=== PATIENT | male | born 1975 | race Caucasian/White ===

== ENCOUNTER 2020-12-24 08:23 | Inpatient (IN) | payer BC ==
[2020-12-24] MEDS ORDERED: SODIUM CHLORIDE 0.9% 500 ML 500 ML IV STA (08:52)
[2020-12-24] MEDS ORDERED: LORazepam 2 MG/ML INJ IV STA (08:52)
[2020-12-24 08:53] LABS: Glucose,Whole Blood 92 mg/dL (75-99)
--- NOTE | 2020-12-24 08:59 | ED ---
General Adult HPI - General Chief complaint: Shortness of Breath Stated complaint: SOB & chest pressure Time Seen by Provider: 12/24/20 08:30 Source: patient, family, RN notes reviewed, old records reviewed Mode of arrival: wheelchair Limitations: no limitations - History of Present Illness Initial comments: This is a 45-year-old male presents to the emergency department with a past medical history significant for high blood pressure. Patient comes in today stating with 3-4 days ago he developed a cough and some shortness of breath per patient states since then he's had multiple panic attacks anytime he lays flat he feels as though shortness of breath is worse. Patient states he has had some chest pressure throughout that time as well. Patient denies any fever or chills. Patient states he is having some episodes of sweating however. 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 Patient states that's unchanged. Patient states he has no lightheadedness or dizziness. Patient states it is much more difficult to breathing normal. - Related Data Home Medications Medication Instructions Recorded Confirmed Dm/Acetaminophen/Doxylamine [Vicks 30 ml PO Q6H PRN 12/24/20 12/24/20 Nyquil Cold-Flu Liquid] Allergies Allergy/AdvReac Type Severity Reaction Status Date / Time No Known Allergies Allergy Verified 12/24/20 11:02 Review of Systems ROS Statement: Those systems with pertinent positive or pertinent negative responses have been documented in the HPI. ROS Other: All systems not noted in ROS Statement are negative. Past Medical History Past Medical History: Hypertension History of Any Multi-Drug Resistant Organisms: None Reported Past Surgical History: No Surgical Hx Reported Past Psychological History: No Psychological Hx Reported Smoking Status: Never smoker Past Alcohol Use History: None Reported Past Drug Use History: None Reported General Exam - General Exam Comments Initial Comments: GENERAL: Patient is well-developed and well-nourished. Patient is nontoxic and well- hydrated and is in mild distress. ENT: Neck is soft and supple. No significant lymphadenopathy is noted. Oropharynx is clear. Moist mucous membranes. Neck has full range of motion without eliciting any pain. EYES: The sclera were anicteric and conjunctiva were pink and moist. Extraocular movements were intact and pupils were equal round and reactive to light. Eyelids were unremarkable. PULMONARY: Unlabored respirations. Good breath sounds bilaterally. No audible rales rhonchi or wheezing was noted. CARDIOVASCULAR: There is a regular rate and rhythm without any murmurs gallops or rubs. ABDOMEN: Soft and nontender with normal bowel sounds. SKIN: Skin is clear with no lesions or rashes and otherwise unremarkable. NEUROLOGIC: Patient is alert and oriented x3. Cranial nerves II through XII are grossly intact. Motor and sensory are also intact. Normal speech, volume and content. Symmetrical smile. MUSCULOSKELETAL: Normal extremities with adequate strength and full range of motion. No lower extremity swelling or edema. Patient has Pain on the right however is chronic and unchanged. No calf pain on the left LYMPHATICS: No significant lymphadenopathy is noted PSYCHIATRIC: Normal psychiatric evaluation. Limitations: no limitations Course Vital Signs 12/24/20 12/24/20 12/24/20 08:28 09:50 10:51 Temperature 97.7 F Pulse Rate 108 H 105 H 109 H Respiratory 18 24 24 Rate Blood Pressure 194/146 148/112 165/129 O2 Sat by Pulse 98 97 99 Oximetry 12/24/20 12/24/20 11:14 11:49 Temperature 98.4 F Pulse Rate 114 H 111 H Respiratory 18 Rate Blood Pressure 173/112 141/112 O2 Sat by Pulse 99 Oximetry Medical Decision Making - Medical Decision Making EKG shows sinus tachycardia #5 bpm MT interval 246 dresses 90 QT interval 356 QTC is 470. Patient's EKG shows T-wave inversions in leads 1-3 and aVF as well as leads V3 V4 V5 and V6. Patient has no old EKG to compare to - Lab Data Result diagrams: 12/24/20 08:54 12/24/20 08:54 Lab Results 12/24/20 12/24/20 12/24/20 Range/Units 08:51 08:52 08:54 WBC 10.1 (3.8-10.6) k/uL RBC 5.00 (4.30-5.90) m/uL Hgb 14.9 (13.0-17.5) gm/dL Hct 44.7 (39.0-53.0) % MCV 89.4 (80.0-100.0) fL MCH 29.8 (25.0-35.0) pg MCHC 33.3 (31.0-37.0) g/dL RDW 14.2 (11.5-15.5) % Plt Count 358 (150-450) k/uL MPV 8.3 Neutrophils % 62 % Lymphocytes % 25 % Monocytes % 5 % Eosinophils % 6 % Basophils % 1 % Neutrophils # 6.2 (1.3-7.7) k/uL Lymphocytes # 2.5 (1.0-4.8) k/uL Monocytes # 0.5 (0-1.0) k/uL Eosinophils # 0.6 (0-0.7) k/uL Basophils # 0.1 (0-0.2) k/uL PT (9.0-12.0) sec INR (<1.2) APTT (22.0-30.0) sec D-Dimer (<0.60) mg/L FEU Sodium (137-145) mmol/L Potassium (3.5-5.1) mmol/L Chloride (98-107) mmol/L Carbon Dioxide (22-30) mmol/L Anion Gap mmol/L BUN (9-20) mg/dL Creatinine (0.66-1.25) mg/dL Est GFR (CKD-EPI)AfAm (>60 ml/min/1.73 sqM) Est GFR (CKD-EPI)NonAf (>60 ml/min/1.73 sqM) Glucose (74-99) mg/dL POC Glucose (mg/dL) 92 (75-99) mg/dL POC Glu Screen Printing Loader Unloader ID [facility] Plasma Lactic Acid Rafael (0.7-2.0) mmol/L Calcium (8.4-10.2) mg/dL Magnesium (1.6-2.3) mg/dL Total Bilirubin (0.2-1.3) mg/dL AST (17-59) U/L ALT (4-49) U/L Alkaline Phosphatase (38-126) U/L Troponin I (0.000-0.034) ng/mL NT-Pro-B Natriuret Pep 2330 pg/mL Total Protein (6.3-8.2) g/dL Albumin (3.5-5.0) g/dL Coronavirus (PCR) (Not Detectd) 12/24/20 12/24/20 12/24/20 Range/Units 08:54 08:54 08:54 WBC (3.8-10.6) k/uL RBC (4.30-5.90) m/uL Hgb (13.0-17.5) gm/dL Hct (39.0-53.0) % MCV (80.0-100.0) fL MCH (25.0-35.0) pg MCHC (31.0-37.0) g/dL RDW (11.5-15.5) % Plt Count (150-450) k/uL MPV Neutrophils % % Lymphocytes % % Monocytes % % Eosinophils % % Basophils % % Neutrophils # (1.3-7.7) k/uL Lymphocytes # (1.0-4.8) k/uL Monocytes # (0-1.0) k/uL Eosinophils # (0-0.7) k/uL Basophils # (0-0.2) k/uL PT 11.1 (9.0-12.0) sec INR 1.0 (<1.2) APTT 23.6 (22.0-30.0) sec D-Dimer 0.72 H (<0.60) mg/L FEU Sodium 139 (137-145) mmol/L Potassium 4.0 (3.5-5.1) mmol/L Chloride 105 (98-107) mmol/L Carbon Dioxide 24 (22-30) mmol/L Anion Gap 10 mmol/L BUN 24 H (9-20) mg/dL Creatinine 1.15 (0.66-1.25) mg/dL Est GFR (CKD-EPI)AfAm 90 (>60 ml/min/1.73 sqM) Est GFR (CKD-EPI)NonAf 78 (>60 ml/min/1.73 sqM) Glucose 100 H (74-99) mg/dL POC Glucose (mg/dL) (75-99) mg/dL POC Glu Screen Printing Loader Unloader ID Plasma Lactic Acid Rafael 1.7 (0.7-2.0) mmol/L Calcium 9.3 (8.4-10.2) mg/dL Magnesium 1.9 (1.6-2.3) mg/dL Total Bilirubin 0.6 (0.2-1.3) mg/dL AST 44 (17-59) U/L ALT 22 (4-49) U/L Alkaline Phosphatase 63 (38-126) U/L Troponin I (0.000-0.034) ng/mL NT-Pro-B Natriuret Pep pg/mL Total Protein 6.7 (6.3-8.2) g/dL Albumin 4.0 (3.5-5.0) g/dL Coronavirus (PCR) (Not Detectd) 12/24/20 12/24/20 Range/Units 08:54 08:54 WBC (3.8-10.6) k/uL RBC (4.30-5.90) m/uL Hgb (13.0-17.5) gm/dL Hct (39.0-53.0) % MCV (80.0-100.0) fL MCH (25.0-35.0) pg MCHC (31.0-37.0) g/dL RDW (11.5-15.5) % Plt Count (150-450) k/uL MPV Neutrophils % % Lymphocytes % % Monocytes % % Eosinophils % % Basophils % % Neutrophils # (1.3-7.7) k/uL Lymphocytes # (1.0-4.8) k/uL Monocytes # (0-1.0) k/uL Eosinophils # (0-0.7) k/uL Basophils # (0-0.2) k/uL PT (9.0-12.0) sec INR (<1.2) APTT (22.0-30.0) sec D-Dimer (<0.60) mg/L FEU Sodium (137-145) mmol/L Potassium (3.5-5.1) mmol/L Chloride (98-107) mmol/L Carbon Dioxide (22-30) mmol/L Anion Gap mmol/L BUN (9-20) mg/dL Creatinine (0.66-1.25) mg/dL Est GFR (CKD-EPI)AfAm (>60 ml/min/1.73 sqM) Est GFR (CKD-EPI)NonAf (>60 ml/min/1.73 sqM) Glucose (74-99) mg/dL POC Glucose (mg/dL) (75-99) mg/dL POC Glu Screen Printing Loader Unloader ID Plasma Lactic Acid Rafael (0.7-2.0) mmol/L Calcium (8.4-10.2) mg/dL Magnesium (1.6-2.3) mg/dL Total Bilirubin (0.2-1.3) mg/dL AST (17-59) U/L ALT (4-49) U/L Alkaline Phosphatase (38-126) U/L Troponin I 0.062 H* (0.000-0.034) ng/mL NT-Pro-B Natriuret Pep pg/mL Total Protein (6.3-8.2) g/dL Albumin (3.5-5.0) g/dL Coronavirus (PCR) Not Detected (Not Detectd) Critical Care Time Critical Care Time: Yes Total Critical Care Time: 35 Disposition Clinical Impression: Hypertensive urgency, Acute pulmonary edema, Elevated troponin Disposition: ADMITTED IP TO THIS HOSP Referrals: None,Stated [Primary Care Provider] - 1-2 days Time of Disposition: 12:09
[2020-12-24 09:07] LABS: Basophils # (A) 0.1 k/uL (0-0.2); Basophils % (A) 1 %; Eosinophils # (A) 0.6 k/uL (0-0.7); Eosinophils % (A) 6 %; HCT 44.7 % (39.0-53.0); HGB 14.9 gm/dL (13.0-17.5); Lymphocytes # (A) 2.5 k/uL (1.0-4.8); Lymphocytes % (A) 25 %; MCH 29.8 pg (25.0-35.0); MCHC 33.3 g/dL (31.0-37.0); MCV 89.4 fL (80.0-100.0); Mean Platelet Volume 8.3; Monocytes # (A) 0.5 k/uL (0-1.0); Monocytes % (A) 5 %; Neutrophils # (A) 6.2 k/uL (1.3-7.7); Neutrophils % (A) 62 %; Platelet Count 358 k/uL (150-450); RDW 14.2 % (11.5-15.5); WBC 10.1 k/uL (3.8-10.6)
[2020-12-24 09:16] LABS: Calcium 9.3 mg/dL (8.4-10.2); Magnesium 1.9 mg/dL (1.6-2.3); Total Bilirubin 0.6 mg/dL (0.2-1.3); Total Protein 6.7 g/dL (6.3-8.2)
[2020-12-24 09:21] LABS: Partial Thromboplastin Time 23.6 sec (22.0-30.0); Prothrombin Time 11.1 sec (9.0-12.0)
--- NOTE | 2020-12-24 09:32 | XR ---
EXAMINATION TYPE: XR chest 2V DATE OF EXAM: 12/24/2020 COMPARISON: NONE HISTORY: difficulty breathing TECHNIQUE: Frontal and lateral views of the chest are obtained. FINDINGS: Perihilar and basilar infiltrates suspicious for underlying pneumonia. Correlate clinically. No evidence for pneumothorax. No pleural effusion. The cardiac silhouette size is within normal limits. The osseous structures are grossly intact. IMPRESSION: 1. Perihilar and basilar infiltrates suspicious for underlying pneumonia. Correlate clinically. Jason elate for Covid 19 pneumonia.
[2020-12-24] MEDS ORDERED: KETOROLAC 15 MG/ML 1 ML VIAL IVP STA (10:03)
[2020-12-24] MEDS ORDERED: cefTRIAXone IN SWFI 1,000 MG/10 ML SYRINGE IVP STA (10:18)
[2020-12-24] MEDS ORDERED: DEXAMETHASONE SOD PHOSPHATE 10 MG/ML 1 ML VIAL IV STA (10:27)
[2020-12-24] MEDS ORDERED: hydrALAZINE HCL 20 MG/ML 1 ML VIAL IVP STA (10:54)
[2020-12-24] MEDS ORDERED: FUROSEMIDE 10 MG/ML 10 ML VIAL IV STA (10:55)
--- NOTE | 2020-12-24 10:55 | CT ---
EXAMINATION TYPE: CT chest angio for PE DATE OF EXAM: 12/24/2020 COMPARISON: Radiograph same day HISTORY: 45-year-old male elevated d-dimer, Shortness of breath, chest pressure TECHNIQUE: Contiguous axial scanning of the chest performed with IV Contrast, patient injected with 1 00 mL of Isovue 370. Coronal and sagittal MIP reconstructions performed. CT DLP: 529.8 mGycm Automated exposure control for dose reduction was used. FINDINGS: Heart is enlarged without pericardial effusion. No flattening of the interventricular septum though t here is reflux of contrast into the hepatic veins. Aortic root mildly aneurysmal at 4.0 cm and ascending aorta aneurysmal at 4.0 cm as well. Upper desce nding thoracic aorta is ectatic at 3.7 cm. Borderline enlarged caliber to the main right and left pulmonary arteries measuring up to 2.8 cm sugg esting underlying pulmonary arterial hypertension. Satisfactory opacification of the pulmonary arteri al system but with breathing motion artifact limiting the evaluation. No large central or definite lo bar branch pulmonary embolus. Many of the segmental and more distal arterial branches are nondiagnost ic and emboli in these locations cannot be adequately excluded on the basis of this exam. Scattered nonenlarged and borderline enlarged mediastinal lymph nodes measuring up to 1.1 cm, likely reactive. There are septal lines throughout the lungs and hazy groundglass in the mid and lower lungs. No frankie consolidation. Moderate right greater than left pleural effusions. Only a small portion of the upper abdomen is visualized. Bones: Mild anterior spondylosis lower thoracic spine. Small sclerotic focus T7 probable bone island or hemangioma. IMPRESSION: 1. THE PATIENT IS BREATHING DURING THE SCAN. NO LARGE CENTRAL OR DEFINITE LOBAR BRANCH EMBOLUS. ASSES SMENT OF MANY OF THE SEGMENTAL AND MORE DISTAL ARTERIAL BRANCHES IS NONDIAGNOSTIC AND EMBOLI IN THESE LOCATIONS CANNOT BE EXCLUDED ON THE BASIS OF THIS EXAM. 2. CARDIOMEGALY WITH PULMONARY ARTERIAL HYPERTENSION. [id number] BILATERAL PLEURAL EFFUSIONS, RIGHT GREATER THAN LEFT. SEPTAL LINES IN THE UPPER LUNGS AND REFLUX OF CONTRAST INTO THE HEPATIC VEIN S. FINDINGS COMPATIBLE WITH FLUID OVERLOAD STATE OR CHF WITH PULMONARY VASCULAR CONGESTION. 3. 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
[2020-12-24] MEDS ORDERED: NITROGLYCERIN OINT 1 INCH/GM PACKET TOPICAL STA (10:57)
[2020-12-24] MEDS ORDERED: NALOXONE 0.4 MG/ML 1 ML VIAL IV PRN (11:57)
[2020-12-24] MEDS ORDERED: ENALAPRILAT 1.25 MG/ML 1 ML VIAL IVP STA (12:03)
[2020-12-24 15:00] VITALS: BMI 29.5
[2020-12-24] MEDS: lisinopriL 10 MG TAB PO SCH (15:31)
[2020-12-24] MEDS: amLODIPine 10 MG TAB PO SCH (15:31)
--- NOTE | 2020-12-24 17:46 | P.HPIM ---
History of Present Illness H&P Date: 12/24/20 Chief Complaint: dyspnea on exertion, orthopnea 45-year-old man with medical history of hypertension who does not follow regularly with a physician presented with increasing dyspnea on exertion. Patient says her symptoms started 4 days ago and progressively got worse. He no longer can lay flat on his bed without significant shortness of breath. He gets short of breath with minimal exertion, now feels short of breath at rest as well. He also reports a little bit of chest pressure, but no significant pain. He denies fevers, chills, nausea, vomiting, palpitations, syncope, presyncope, cough, abdominal pain, diarrhea, constipation, dysuria, dyschezia, numbness/weakness. In the emergency room he was found to be very hypertensive, with computed tomography scan and chest x-ray consistent with volume overload. He was admitted for heart failure exacerbation and for further workup, as well as for hypertensive urgency. Review of Systems All Systems reviewed and pertinent positives and negatives noted in HPI, all other symptoms are negative Past Medical History Past Medical History: Hypertension History of Any Multi-Drug Resistant Organisms: None Reported Past Surgical History: No Surgical Hx Reported Past Psychological History: No Psychological Hx Reported Smoking Status: Never smoker Past Alcohol Use History: None Reported Past Drug Use History: None Reported Medications and Allergies Home Medications Medication Instructions Recorded Confirmed Type Dm/Acetaminophen/Doxylamine [Vicks 30 ml PO Q6H PRN 12/24/20 12/24/20 History Nyquil Cold-Flu Liquid] Allergies Allergy/AdvReac Type Severity Reaction Status Date / Time No Known Allergies Allergy Verified 12/24/20 11:02 Physical Exam Osteopathic Statement: *. No significant issues noted on an osteopathic structural exam other than those noted in the History and Physical/Consult. Vitals: Vital Signs Temp Pulse Pulse Resp BP BP Pulse Ox 12/24/20 15:51 102 H 17 125/68 94 L 12/24/20 14:00 102 H 17 12/24/20 13:31 102 H 17 128/81 96 12/24/20 13:03 98.4 F 98 18 119/81 98 12/24/20 12:36 101 H 126/83 99 12/24/20 12:00 105 H 122/86 99 12/24/20 11:49 111 H 141/112 12/24/20 11:14 98.4 F 114 H 18 173/112 99 12/24/20 10:51 109 H 24 165/129 99 12/24/20 09:50 105 H 24 148/112 97 12/24/20 08:28 97.7 F 108 H 18 194/146 98 Intake and Output 12/24/20 12/24/20 12/24/20 06:59 14:59 22:59 Intake Total 500 Output Total 3200 Balance -2700 Intake: IV 500 Sodium Chloride 0.9% 500 500 ml 500 ml @ 999 mls/hr IV .Q31M STA Rx#:[id number] Output: Urine 3200 Other: Weight 104.326 kg Gen: awake, alert HEENT: normocephalic, atraumatic, good hearing acuity, moist mucous membranes Resp: Mild accessory muscle use, good air exchange, diminished breath sounds bilaterally in the bases, posterior crackles CVS: good distal perfusion x 4, tachycardic, regular rhythm, no murmurs, JVD to the angle of the jaw in upright position GI: soft, NTTP, ND : no SPT, no CVAT, pablo catheter not present MSK: no pitting edema, no clubbing Neuro: non-focal, moving all extremities Psych: cooperative, euthymic mood Results CBC & Chem 7: 12/24/20 08:54 12/24/20 08:54 Labs: Abnormal Lab Results - Last 24 Hours (Table) 12/24/20 12/24/20 12/24/20 Range/Units 08:54 08:54 08:54 D-Dimer 0.72 H (<0.60) mg/L FEU BUN 24 H (9-20) mg/dL Glucose 100 H (74-99) mg/dL Troponin I 0.062 H* (0.000-0.034) ng/mL 12/24/20 12/24/20 Range/Units 12:29 14:37 D-Dimer (<0.60) mg/L FEU BUN (9-20) mg/dL Glucose (74-99) mg/dL Troponin I 0.039 H* 0.042 H* (0.000-0.034) ng/mL Thrombosis Risk Factor Assmnt - Choose All That Apply Each Factor Represents 1 point: Age 41-60 years Thrombosis Risk Factor Assessment Total Risk Factor Score: 1 Thrombosis Risk Factor Assessment Level: Low Risk Assessment and Plan Assessment: Hypertensive urgency Heart failure exacerbation, newly diagnosed, unknown ejection fraction Elevated troponin secondary to the above -Admit to inpatient, telemetry -Cardiology consult -Trend troponins -Lasix 40 mg IV twice a day -Amlodipine 10 mg -Lisinopril 10 mg -Hydralazine 25 mg by mouth 4 times a day when necessary for SBP greater than 160 or DBP greater than 100 -Echocardiogram Patient is a full code DVT prophylaxis with heparin 3 times a day is next of kin
[2020-12-24] MEDS: NITROGLYCERIN OINT 1 INCH/GM PACKET TOPICAL SCH ×2 (17:58→23:05)
[2020-12-24] MEDS: FUROSEMIDE 10 MG/ML 4 ML VIAL IV SCH (19:59)
[2020-12-24] MEDS: ALPRAZolam 0.5 MG TAB PO PRN (19:59)
[2020-12-24] MEDS ORDERED: TEMAZEPAM 7.5 MG CAP PO ONE (23:01)
--- NOTE | 2020-12-25 07:48 | ECHOF ---
Referral Reason:Heart Failure MEASUREMENTS -------- HEIGHT: 182.9 cm WEIGHT: 104.3 kg BP: IVSd: 1.3 cm (0.6 - 1.1) LVIDd: 7.2 cm (3.9 - 5.3) LVPWd: 1.4 cm (0.6 - 1.1) IVSs: 1.4 cm LVIDs: 6.8 cm LVPWs: 1.8 cm LAESV Index (A-L): 54.49 ml/m Ao Diam: 4.1 cm (2.0 - 3.7) AV Cusp: 2.2 cm (1.5 - 2.6) MV EXCURSION: 15.488 mm (> 18.000) MV EF SLOPE: 69 mm/s (70 - 150) EPSS: 2.1 cm MV E Elroy: 0.72 m/s MV DecT: 95 ms MV A Elroy: 0.54 m/s MV E/A Ratio: 1.32 RAP: 5.00 mmHg RVSP: 32.75 mmHg FINDINGS -------- Sinus rhythm. This was a technically good study. The left ventricle is moderately dilated. There is severe global hypokinesis of LV . Overall left ventricular systolic function is severely impaired with, an EF between 25 - 30 %. The right ventricle is normal in size. LA is severely dilated >40 ml/m2 The right atrial size is normal. Trace to mild aortic regurgitation. Mild mitral regurgitation is present. Mild tricuspid regurgitation present. Right ventricular systolic pressure is normal at < 35 mmHg. There is no pulmonic regurgitation present. Aortic Root is dilated and measures 4.1cm. There is no pericardial effusion. CONCLUSIONS -------- 1. The left ventricle is moderately dilated. 2. There is severe global hypokinesis of LV . 3. Overall left ventricular systolic function is severely impaired with, an EF between 25 - 30 %. 4. The right ventricle is normal in size. 5. LA is severely dilated >40 ml/m2 6. The right atrial size is normal. 7. Trace to mild aortic regurgitation. 8. Mild mitral regurgitation is present. 9. Mild tricuspid regurgitation present. 10. There is no pulmonic regurgitation present. 11. Aortic Root is dilated and measures 4.1cm. 12. There is no pericardial effusion. EXECUTIVE SALES ASSISTANT: Sasha Nur RDCS
[2020-12-25 08:07] LABS: Basophils % (A) 0 %; Eosinophils % (A) 0 %; HCT 42.9 % (39.0-53.0); Lymphocytes # (A) 1.1 k/uL (1.0-4.8); Lymphocytes % (A) 7 %; MCH 29.3 pg (25.0-35.0); MCHC 32.6 g/dL (31.0-37.0); Monocytes # (A) 0.9 k/uL (0-1.0); Monocytes % (A) 6 %; Neutrophils # (A) 13.6 k/uL (1.3-7.7); Neutrophils % (A) 86 %; Platelet Count 325 k/uL (150-450); RBC 4.77 m/uL (4.30-5.90); RDW 14.2 % (11.5-15.5); WBC 15.8 k/uL (3.8-10.6)
[2020-12-25 08:18] LABS: African American GFR (CKD) >90 (>60 ml/min/1.73 sqM); Anion Gap 9 mmol/L; Blood Urea Nitrogen 29 mg/dL (9-20); Calcium 9.1 mg/dL (8.4-10.2); Carbon Dioxide 25 mmol/L (22-30); Chloride 102 mmol/L (98-107); Glucose 118 mg/dL (74-99); Magnesium 1.7 mg/dL (1.6-2.3); Non-African American GFR(CKD) 86 (>60 ml/min/1.73 sqM); Potassium 3.8 mmol/L (3.5-5.1); Sodium 136 mmol/L (137-145)
[2020-12-25 08:24] LABS: Prothrombin Time 10.8 sec (9.0-12.0)
[2020-12-25] MEDS: NITROGLYCERIN OINT 1 INCH/GM PACKET TOPICAL SCH ×4 (08:30→21:18)
[2020-12-25] MEDS: ENOXAPARIN 40 MG/0.4 ML SYRINGE SQ SCH (08:31)
[2020-12-25] MEDS: lisinopriL 10 MG TAB PO SCH (08:31)
[2020-12-25] MEDS: FUROSEMIDE 10 MG/ML 4 ML VIAL IV SCH (08:31)
[2020-12-25] MEDS: amLODIPine 10 MG TAB PO SCH (08:31)
[2020-12-25] MEDS ORDERED: METOPROLOL SUCCINATE (ER) 25 MG TAB.ER.24H PO SCH (10:15)
[2020-12-25] MEDS ORDERED: ATORVASTATIN 80 MG TAB PO STA (11:12)
[2020-12-25] MEDS ORDERED: SODIUM CHLORIDE 0.9% 1,000 ML in EMPTY BAG 1 BAG IV ONE (11:12)
[2020-12-25] MEDS ORDERED: ASPIRIN 325 MG TAB PO STA (11:12)
[2020-12-25 12:10] LABS: Glucose,Whole Blood 96 mg/dL (75-99)
[2020-12-25] MEDS ORDERED: LIDOCAINE 1% INJ 10MG/ML (20 ML MDV) ONE (12:31)
[2020-12-25] MEDS ORDERED: MIDAZOLAM 2 MG/2 ML VIAL IVP ONE (12:32)
[2020-12-25] MEDS ORDERED: fentaNYL (PF) 50 MCG/ML 2 ML AMP IVP ONE (12:32)
[2020-12-25] MEDS ORDERED: fentaNYL (PF) 50 MCG/ML 2 ML AMP ONE (12:33)
[2020-12-25] MEDS ORDERED: LIDOCAINE 1% INJ 10MG/ML (20 ML MDV) SQ ONE (12:33)
--- NOTE | 2020-12-25 12:34 | P.CRDCN ---
History of Present Illness History of present illness: HISTORY OF PRESENTING ILLNESS This is a pleasant 45-year-old male past medical history significant for hypertension. 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 We have been asked to see in consultation for congestive heart failure. Patient presents to the emergency department with complaints of cough and shortness of breath for 3-4 days. Patient states he had an episode of chest pain last week. Describes it as a heavy pressure. non-radiating. Exertional. Aggravated by activity. Alleviated by rest. He had associated diaphoresis, nausea no emesis, and shortness of breath. He states he was at work doing physical activity. He did not present to the emergency department and states he thought it may be his blood pressure being elevated. Over the past 4 days patient has had worsening shortness of breath, symptoms of orthopnea and PND. He state when he lays flat in bed "I feel like I am drowning". He also endorses lower extremity edema that comes and goes. He denies history of [place], stroke, diabetes, coronary artery disease. He denies family history of coronary artery disease. His mom has a history of having a pacemaker placed. He denies tobacco use. Denies alcohol use. Does occasionally use adderall that is not prescribed to him. Denies illicit drug use. He denies prior stress test or echocardiogram work up. On admission patient was hypertensive pressure 194/146, heart rate 108, afebrile, maintaining oxygen saturations on room air. Patient started on amlodipine 10 mg daily, IV Lasix 40 mg twice a day, lisinopril 10 mg daily. Patient with 4.6L urine output over the past 24 hours. DIAGNOSTICS EKG reveals sinus tachycardia, HR 105, T-wave inversions in leads I, II, III, and aVF as well as leads V3 V4 V5 and V6. ST depression in leads I, V5 and V6. No prior EKG to compare Telemetry tracings indicate sinus mechanism HR 80-low 100s. new ST depression in lead II Chest xray Perihilar and basilar infiltrates. Echocardiogram revealed EF 25-30%, LA is severely dilated, trace to mild aortic regurgitation, mild mitral regurgitation, mild tricuspid regurgitation. Aortic root is dilated and measures 4.1 cm Laboratory reviewed, WBC 15.8, hemoglobin 14, platelets 325, d-dimer 0.672, sodium 136, potassium 3.8, BUN 29, serum creatinine 1.06, magnesium 1.7, COVID- 19 PCR negative, proBNP 2330, Pro BNP 2330, Troponin 0.06--> 0.03--> 0.04 Current home medications include none REVIEW OF SYSTEMS At the time of my exam: CONSTITUTIONAL: Denies fever or chills. CARDIOVASCULAR: +chest pain,+ shortness of breath, +orthopnea +PND Denies palpitations. RESPIRATORY: +cough. GASTROINTESTINAL: Denies abdominal pain, diarrhea, constipation, nausea or vomiting. MUSCULOSKELETAL: Denies myalgias. NEUROLOGIC: Denies numbness, tingling, headacbe or weakness. ENDOCRINE: Denies fatigue, weight change, polydipsia or polyurina. GENITOURINARY: Denies burning, hematuria or urgency with micturation. HEMATOLOGIC: Denies history of anemia or bleeding. PHYSICAL EXAMINATION Blood pressure 130/79 heart rate 91 afebrile and maintaining oxygen saturation 96% on room air CONSTITUTIONAL: No apparent distress. HEENT: Head is normocephalic. Pupils are equal, round. Sclerae anicteric. Mucous membranes of the mouth are moist. +JVD. CHEST EXAMINATION: Lungs are clear to auscultation. No chest wall tenderness is noted on palpation or with deep breathing. HEART EXAMINATION: Regular rate and rhythm. S1, S2 heard. Systolic murmur at apex. ABDOMEN: Soft, nontender. Positive bowel sounds. EXTREMITIES: 2+ peripheral pulses, no lower extremity edema and no calf tenderness. SKIN: intact. NEUROLOGIC EXAMINATION: Patient is awake, alert and oriented x3. ASSESSMENT Acute systolic heart failure EF 25-30% Elevated troponin, concern for NSTEMI New onset dilated cardiomyopathy Chest pain Shortness of breath History of hypertension PLAN -We recommend proceeding with cardiac catheterization. Patient i agreeable to procedure -I have discussed the risks, benefits and alternative therapies for the above- mentioned procedure and for both sedation/analgesia as well as necessary blood product administration, if indicated, as they pertain to this patient. The patient has indicated understanding and acceptance of the risks and procedures discussed. Questions have been answered appropriately and he is agreeable to move forward with the above-stated procedure. -Plan for cardiac catheterization with Dr. Marcos today -Continue current medical regimen with aspirin, statin, beta zeny, lisinopril and amlodipine and adjust as needed -Further recommendations based on clinical course -Thank you kindly for this consultation. Nurse Practitioner note has been reviewed, I agree with a documented findings and plan of care. Patient was seen and examined. Past Medical History Past Medical History: Hypertension History of Any Multi-Drug Resistant Organisms: None Reported Past Surgical History: No Surgical Hx Reported Past Psychological History: No Psychological Hx Reported Smoking Status: Never smoker Past Alcohol Use History: None Reported Past Drug Use History: None Reported Medications and Allergies Home Medications Medication Instructions Recorded Confirmed Type Dm/Acetaminophen/Doxylamine [Vicks 30 ml PO Q6H PRN 12/24/20 12/24/20 History Nyquil Cold-Flu Liquid] Allergies Allergy/AdvReac Type Severity Reaction Status Date / Time No Known Allergies Allergy Verified 12/24/20 11:02 Physical Exam Vitals: Vital Signs Temp Pulse Resp BP Pulse Ox 12/24/20 12:36 101 H 126/83 99 12/24/20 12:00 105 H 122/86 99 12/24/20 11:49 111 H 141/112 12/24/20 11:14 98.4 F 114 H 18 173/112 99 12/24/20 10:51 109 H 24 165/129 99 12/24/20 09:50 105 H 24 148/112 97 12/24/20 08:28 97.7 F 108 H 18 194/146 98 Intake and Output 12/23/20 12/24/20 12/24/20 22:59 06:59 14:59 Intake Total 500 Output Total 3200 Balance -2700 Intake: IV 500 Sodium Chloride 0.9% 500 500 ml 500 ml @ 999 mls/hr IV .Q31M STA Rx#:[id number] Output: Urine 3200 Other: Weight 104.326 kg Results 12/25/20 07:40 12/25/20 07:40 Cardiac Enzymes 12/24/20 12/24/20 Range/Units 08:54 08:54 AST 44 (17-59) U/L Troponin I 0.062 H* (0.000-0.034) ng/mL Coagulation 12/24/20 Range/Units 08:54 PT 11.1 (9.0-12.0) sec APTT 23.6 (22.0-30.0) sec CBC 12/24/20 Range/Units 08:54 WBC 10.1 (3.8-10.6) k/uL RBC 5.00 (4.30-5.90) m/uL Hgb 14.9 (13.0-17.5) gm/dL Hct 44.7 (39.0-53.0) % Plt Count 358 (150-450) k/uL Comprehensive Metabolic Panel 12/24/20 Range/Units 08:54 Sodium 139 (137-145) mmol/L Potassium 4.0 (3.5-5.1) mmol/L Chloride 105 (98-107) mmol/L Carbon Dioxide 24 (22-30) mmol/L BUN 24 H (9-20) mg/dL Creatinine 1.15 (0.66-1.25) mg/dL Glucose 100 H (74-99) mg/dL Calcium 9.3 (8.4-10.2) mg/dL AST 44 (17-59) U/L ALT 22 (4-49) U/L Alkaline Phosphatase 63 (38-126) U/L Total Protein 6.7 (6.3-8.2) g/dL Albumin 4.0 (3.5-5.0) g/dL Current Medications Generic Name Dose Route Start Last Admin Trade Name Freq PRN Reason Stop Dose Admin Acetaminophen 650 mg 12/24/20 11:57 Acetaminophen Tab 325 Mg Tab PO Q6HR PRN Mild Pain or Fever > 100.5 Amlodipine Besylate 10 mg 12/24/20 12:15 Amlodipine 10 Mg Tab PO DAILY [facility] Enoxaparin Sodium 40 mg 12/25/20 09:00 Enoxaparin 40 Mg/0.4 Ml Syringe SQ DAILY [facility] Furosemide 40 mg 12/24/20 21:00 Furosemide 10 Mg/Ml 4 Ml Vial IV BID [facility] Lisinopril 10 mg 12/24/20 12:15 Lisinopril 10 Mg Tab PO DAILY [facility] Naloxone HCl 0.2 mg 12/24/20 11:57 Naloxone 0.4 Mg/Ml 1 Ml Vial IV Q2M PRN Opioid Reversal Nitroglycerin 1 inch 12/24/20 18:00 Nitroglycerin Oint 1 Inch/Gm Packet TOPICAL QID BELEN Intake and Output 12/23/20 12/24/20 12/24/20 22:59 06:59 14:59 Intake Total 500 Output Total 3200 Balance -2700 Intake: IV 500 Sodium Chloride 0.9% 500 500 ml 500 ml @ 999 mls/hr IV .Q31M STA Rx#:[id number] Output: Urine 3200 Other: Weight 104.326 kg Patient Weight 12/25/20 06:59 Weight 104.326 kg 12/24/20 08:54 12/24/20 08:54
[2020-12-25] MEDS ORDERED: IV FLUID CONTINUATION 1,000 ML IV ONE (12:39)
[2020-12-25] MEDS ORDERED: FUROSEMIDE 10 MG/ML 4 ML VIAL ONE (12:45)
[2020-12-25] MEDS ORDERED: IOPAMIDOL-370 125ML BTL INJ ONE (12:53)
[2020-12-25] MEDS ORDERED: FUROSEMIDE 10 MG/ML 4 ML VIAL IV ONE (12:53)
[2020-12-25] MEDS ORDERED: METOPROLOL SUCCINATE (ER) 25 MG TAB.ER.24H PO STA (12:58)
[2020-12-25] MEDS ORDERED: RX INFO: IV CONTRAST WAS GIVEN 1 EACH MISC MISCELLANE PRN (13:00)
--- NOTE | 2020-12-25 13:18 | P.PN ---
Subjective Progress Note Date: 12/25/20 Pt feels clinically improved. Dyspnea has improved, orthopnea has resolved. BPs have improved. Echo demonstrates rEF to 25-30%. Pending LHC via cardiology. Objective - Vital Signs Vital signs: Vital Signs Temp 98.2 F 12/25/20 11:41 Pulse 91 12/25/20 11:41 Resp 19 12/25/20 11:41 BP 130/79 12/25/20 11:41 Pulse Ox 96 12/25/20 11:41 Intake & Output 12/24/20 12/25/20 12/25/20 18:59 06:59 18:59 Intake Total 740 290 Output Total 3200 1450 400 Balance -2460 -1450 -110 Weight 104.326 kg 108.3 kg Intake: IV 500 50 Sodium Chloride 0.9% 500 500 ml 500 ml @ 999 mls/hr IV .Q31M STA Rx#:[id number] Oral 240 240 Output: Urine 3200 1450 400 Other: # Voids 1 - Exam Gen: awake, alert HEENT: normocephalic, atraumatic, good hearing acuity, moist mucous membranes Resp: Mild accessory muscle use, good air exchange, diminished breath sounds bilaterally in the bases, posterior crackles CVS: good distal perfusion x 4, tachycardic, regular rhythm, no murmurs, JVD to the angle of the jaw in upright position GI: soft, NTTP, ND : no SPT, no CVAT, pablo catheter not present MSK: no pitting edema, no clubbing Neuro: non-focal, moving all extremities Psych: cooperative, euthymic mood - Labs CBC & Chem 7: 12/25/20 07:40 12/25/20 07:40 Labs: Abnormal Lab Results - Last 24 Hours (Table) 12/24/20 12/24/20 12/25/20 Range/Units 12:29 14:37 07:40 WBC 15.8 H (3.8-10.6) k/uL Neutrophils # 13.6 H (1.3-7.7) k/uL Sodium (137-145) mmol/L BUN (9-20) mg/dL Glucose (74-99) mg/dL Troponin I 0.039 H* 0.042 H* (0.000-0.034) ng/mL 12/25/20 Range/Units 07:40 WBC (3.8-10.6) k/uL Neutrophils # (1.3-7.7) k/uL Sodium 136 L (137-145) mmol/L BUN 29 H (9-20) mg/dL Glucose 118 H (74-99) mg/dL Troponin I (0.000-0.034) ng/mL Microbiology - Last 24 Hours (Table) 12/24/20 09:45 Blood Culture - Preliminary Blood No Growth after 24 hours 12/24/20 10:05 Blood Culture - Preliminary Blood No Growth after 24 hours Assessment and Plan Assessment: Hypertensive urgency Heart failure exacerbation, newly diagnosed, unknown ejection fraction Elevated troponin secondary to the above -Admit to inpatient, telemetry -Cardiology consult -Trend troponins -Lasix 40 mg IV twice a day --> daily on 12/25 -Amlodipine 10 mg -Lisinopril 10 mg -Hydralazine 25 mg by mouth 4 times a day when necessary for SBP greater than 160 or DBP greater than 100 -Echocardiogram = global hypokinesis, EF 25-30% -[facility] on 12/25 Patient is a full code DVT prophylaxis with heparin 3 times a day is next of kin
--- NOTE | 2020-12-25 13:50 | CC ---
CARDIAC CATHETERIZATION REPORT INDICATION: Cardiomyopathy with new-onset congestive heart failure. PROCEDURE NOTE: After obtaining informed consent, left heart catheterization and coronary angiogram were performed via the right femoral artery using standard Rodrick catheters. Patient tolerated the procedure well without any obvious immediate complications. A femoral angiogram was performed and Angio-Seal was deployed for hemostasis. Patient received moderate conscious sedation. Total sedation time was 15 minutes. FINDINGS: HEMODYNAMICS: Left ventricular end-diastolic pressure is 27 mm. There is no significant gradient across the aortic valve. LEFT VENTRICULOGRAM: Left ventriculogram was not performed. ANGIOGRAPHIC DATA: Left main coronary artery. Left main coronary artery is a normal-sized vessel and is free of stenosis. It divides into left anterior descending coronary artery and circumflex coronary artery. LAD and its branches, circumflex coronary artery and its branches are free of significant stenosis. Right coronary artery is a large dominant vessel and is free of significant stenosis. CONCLUSIONS: 1. Normal coronary arteries. 2. Nonischemic cardiomyopathy with severe LV dysfunction. PLAN: Will treat the patient with optimal medical therapy, and if the LV function does not normalize, he will require prophylactic AICD. MMODL / IJN: [id number] /
[2020-12-25] MEDS: ALPRAZolam 0.5 MG TAB PO PRN (20:31)
[2020-12-25] MEDS: TEMAZEPAM 7.5 MG CAP PO PRN (20:31)
[2020-12-26] MEDS ORDERED: HEPARIN SODIUM,PORCINE 10,000 UNIT in SODIUM CHLORIDE 0.9% 1,000 ML IRRIGATION PRN (07:00)
[2020-12-26] MEDS ORDERED: HEPARIN SODIUM,PORCINE 2,500 UNIT in SODIUM CHLORIDE 0.9% 250 ML IRRIGATION PRN (07:00)
[2020-12-26 08:12] LABS: Basophils # (A) 0.1 k/uL (0-0.2); Basophils % (A) 1 %; Eosinophils # (A) 0.2 k/uL (0-0.7); Eosinophils % (A) 2 %; HCT 44.8 % (39.0-53.0); HGB 14.2 gm/dL (13.0-17.5); Lymphocytes % (A) 22 %; MCH 28.8 pg (25.0-35.0); MCHC 31.7 g/dL (31.0-37.0); MCV 90.8 fL (80.0-100.0); Monocytes # (A) 0.8 k/uL (0-1.0); Monocytes % (A) 6 %; Neutrophils # (A) 9.5 k/uL (1.3-7.7); Neutrophils % (A) 69 %; Platelet Count 301 k/uL (150-450); RBC 4.94 m/uL (4.30-5.90); RDW 13.9 % (11.5-15.5); WBC 13.8 k/uL (3.8-10.6)
[2020-12-26 08:29] LABS: African American GFR (CKD) >90 (>60 ml/min/1.73 sqM); Anion Gap 7 mmol/L; Blood Urea Nitrogen 23 mg/dL (9-20); Calcium 8.9 mg/dL (8.4-10.2); Carbon Dioxide 28 mmol/L (22-30); Chloride 102 mmol/L (98-107); Glucose 96 mg/dL (74-99); Non-African American GFR(CKD) 88 (>60 ml/min/1.73 sqM); Potassium 3.8 mmol/L (3.5-5.1); Sodium 137 mmol/L (137-145)
[2020-12-26] MEDS: ENOXAPARIN 40 MG/0.4 ML SYRINGE SQ SCH (08:34)
[2020-12-26] MEDS: lisinopriL 10 MG TAB PO SCH (08:35)
[2020-12-26] MEDS: NITROGLYCERIN OINT 1 INCH/GM PACKET TOPICAL SCH (08:35)
[2020-12-26] MEDS: amLODIPine 10 MG TAB PO SCH (08:35)
[2020-12-26] MEDS: FUROSEMIDE 10 MG/ML 4 ML VIAL IV SCH (08:35)
[2020-12-26] MEDS ORDERED: METOPROLOL SUCCINATE (ER) 25 MG TAB.ER.24H PO SCH (09:00)
[2020-12-26] MEDS: METOPROLOL SUCCINATE (ER) 50 MG TAB.ER.24H PO SCH (10:13)
[2020-12-26] MEDS: SPIRONOLACTONE 25 MG TAB PO SCH (10:14)
[2020-12-26] MEDS ORDERED: METOPROLOL SUCCINATE (ER) 25 MG TAB.ER.24H PO ONE (10:15)
[2020-12-26] MEDS: ACETAMINOPHEN TAB 325 MG TAB PO PRN (10:17)
--- NOTE | 2020-12-26 10:25 | P.PN ---
Subjective Progress Note Date: 12/26/20 HISTORY OF PRESENT ILLNESS: This is a pleasant 45-year-old male past medical history significant for hypertension. 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 We have been asked to see in consultation for congestive heart failure. Patient presents to the emergency department with complaints of cough and shortness of breath for 3-4 days. Patient states he had an episode of chest pain last week. Describes it as a heavy pressure. non-radiating. Exertional. Aggravated by activity. Alleviated by rest. He had associated diaphoresis, nausea no emesis, and shortness of breath. He states he was at work doing physical activity. He did not present to the emergency department and states he thought it may be his blood pressure being elevated. Over the past 4 days patient has had worsening shortness of breath, symptoms of orthopnea and PND. He state when he lays flat in bed "I feel like I am drowning". He also endorses lower extremity edema that comes and goes. He denies history of [place], stroke, diabetes, coronary artery disease. He denies family history of coronary artery disease. His mom has a history of having a pacemaker placed. He denies tobacco use. Denies alcohol use. Does occasionally use adderall that is not prescribed to him. Denies illicit drug use. He denies prior stress test or echocardiogram work up. On admission patient was hypertensive pressure 194/146, heart rate 108, afebrile, maintaining oxygen saturations on room air. Patient started on amlodipine 10 mg daily, IV Lasix 40 mg twice a day, lisinopril 10 mg daily. Patient with 4.6L urine output over the past 24 hours. DIAGNOSTICS EKG reveals sinus tachycardia, HR 105, T-wave inversions in leads I, II, III, and aVF as well as leads V3 V4 V5 and V6. ST depression in leads I, V5 and V6. No prior EKG to compare Telemetry tracings indicate sinus mechanism HR 80-low 100s. new ST depression in lead II Chest xray Perihilar and basilar infiltrates. Echocardiogram revealed EF 25-30%, LA is severely dilated, trace to mild aortic regurgitation, mild mitral regurgitation, mild tricuspid regurgitation. Aortic root is dilated and measures 4.1 cm Laboratory reviewed, WBC 15.8, hemoglobin 14, platelets 325, d-dimer 0.672, sodium 136, potassium 3.8, BUN 29, serum creatinine 1.06, magnesium 1.7, COVID- 19 PCR negative, proBNP 2330, Pro BNP 2330, Troponin 0.06--> 0.03--> 0.04 Current home medications include none 12/26/2020 Patient examined this morning at the bedside. He underwent cardiac catheterization yesterday revealing normal coronary arteries. Patient denies chest pain or pressure. He denies shortness of breath. He remains on IV lasix. BUN 23. Creatinine 1.03. Blood pressure 178/105. Heart rate in the 90s. PHYSICAL EXAM: VITAL SIGNS: Reviewed. GENERAL: Well-developed in no acute distress. NECK: Supple. No JVD or thyromegaly LUNGS: Respirations even and unlabored. Lungs essentially clear to auscultation bilaterally. HEART: Regular rate and rhythm. S1 and S2 heard. EXTREMITIES: Normal range of motion. No clubbing or cyanosis. Peripheral pulses intact. No lower extremity edema. Right groin cath site with no hematoma. ASSESSMENT: Acute systolic heart failure EF 25-30% Nonischemic cardiomyopathy Abnormal troponins, s/p cardiac cath revealing normal coronary arteries Chest pain Shortness of breath Hypertension, uncontrolled PLAN: Continue current cardiac medications Continue IV Lasix for an additional 24 hours Increase metoprolol succinate to 50mg daily Continue to monitor blood pressure Patient will require lifevest at the time of discharge to prevent sudden cardiac due to severe nonischemic cardiomyopathy Anticipate discharge home tomorrow if patient remains stable Nurse practitioner note has been reviewed by physician. Signing provider agrees with the documented findings, assessment, and plan of care. Objective - Vital Signs Vital signs: Vital Signs Temp 98.4 F 12/26/20 08:31 Pulse 92 12/26/20 08:31 Resp 16 12/26/20 08:31 BP 114/79 12/26/20 10:10 Pulse Ox 97 12/26/20 10:10 Intake & Output 12/25/20 12/26/20 12/26/20 18:59 06:59 18:59 Intake Total 290 1920 Output Total 1300 Balance -1010 1920 Weight 108 kg 110.9 kg Intake: IV 50 Oral 240 1920 Output: Urine 1300 - Labs CBC & Chem 7: 12/26/20 07:16 12/26/20 07:16 Labs: Abnormal Lab Results - Last 24 Hours (Table) 12/26/20 12/26/20 Range/Units 07:16 07:16 WBC 13.8 H (3.8-10.6) k/uL Neutrophils # 9.5 H (1.3-7.7) k/uL BUN 23 H (9-20) mg/dL Microbiology - Last 24 Hours (Table) 12/24/20 09:45 Blood Culture - Preliminary Blood No Growth after 24 hours 12/24/20 10:05 Blood Culture - Preliminary Blood No Growth after 24 hours
--- NOTE | 2020-12-26 11:47 | P.PN ---
Subjective Progress Note Date: 12/26/20 Pt laying in bed resting comfortably. Had LHC yesterday which demonstrated clean coronaries. Started on metoprolol by cardiology. Amlodipine d/c'd, started on spironolactone. Ongoing lisinopril. No events on telemetry. Objective - Vital Signs Vital signs: Vital Signs Temp 98.4 F 12/26/20 08:31 Pulse 92 12/26/20 08:31 Resp 16 12/26/20 08:31 BP 114/79 12/26/20 10:10 Pulse Ox 97 12/26/20 10:10 Intake & Output 12/25/20 12/26/20 12/26/20 18:59 06:59 18:59 Intake Total 290 1920 Output Total 1300 Balance -1010 1920 Weight 108 kg 110.9 kg Intake: IV 50 Oral 240 1920 Output: Urine 1300 - Exam Gen: awake, alert HEENT: normocephalic, atraumatic, good hearing acuity, moist mucous membranes Resp: Mild accessory muscle use, good air exchange, diminished breath sounds bilaterally in the bases, posterior crackles CVS: good distal perfusion x 4, tachycardic, regular rhythm, no murmurs, JVD to the angle of the jaw in upright position GI: soft, NTTP, ND : no SPT, no CVAT, pablo catheter not present MSK: no pitting edema, no clubbing Neuro: non-focal, moving all extremities Psych: cooperative, euthymic mood - Labs CBC & Chem 7: 12/26/20 07:16 12/26/20 07:16 Labs: Abnormal Lab Results - Last 24 Hours (Table) 12/26/20 12/26/20 Range/Units 07:16 07:16 WBC 13.8 H (3.8-10.6) k/uL Neutrophils # 9.5 H (1.3-7.7) k/uL BUN 23 H (9-20) mg/dL Microbiology - Last 24 Hours (Table) 12/24/20 09:45 Blood Culture - Preliminary Blood No Growth after 24 hours 12/24/20 10:05 Blood Culture - Preliminary Blood No Growth after 24 hours Assessment and Plan Assessment: Hypertensive urgency Heart failure exacerbation, newly diagnosed, unknown ejection fraction Elevated troponin secondary to the above -Admit to inpatient, telemetry -Cardiology consult -Trend troponins -Lasix 40 mg IV twice a day --> daily on 12/25 -Amlodipine 10 mg d/c'd on 12/26 -Started spironolactone 12/26 -Lisinopril 10 mg -metoprolol started by cardiology -Echocardiogram = global hypokinesis, EF 25-30% -[facility] on 12/25 showed clean coronaries Patient is a full code DVT prophylaxis with heparin 3 times a day is next of kin
[2020-12-26] MEDS: ALPRAZolam 0.5 MG TAB PO PRN ×3 (14:41→23:32)
[2020-12-26] MEDS: TEMAZEPAM 7.5 MG CAP PO PRN (20:24)
[2020-12-27] MEDS: ACETAMINOPHEN TAB 325 MG TAB PO PRN ×2 (04:53→11:43)
[2020-12-27 07:59] LABS: African American GFR (CKD) >90 (>60 ml/min/1.73 sqM); Anion Gap 9 mmol/L; Blood Urea Nitrogen 18 mg/dL (9-20); Calcium 9.7 mg/dL (8.4-10.2); Carbon Dioxide 24 mmol/L (22-30); Chloride 103 mmol/L (98-107); Glucose 125 mg/dL (74-99); Non-African American GFR(CKD) >90 (>60 ml/min/1.73 sqM); Potassium 3.7 mmol/L (3.5-5.1); Sodium 136 mmol/L (137-145)
[2020-12-27 08:20] VITALS: TEMP 97.8
[2020-12-27] MEDS: lisinopriL 10 MG TAB PO SCH (08:27)
[2020-12-27] MEDS: FUROSEMIDE 10 MG/ML 4 ML VIAL IV SCH (08:27)
[2020-12-27] MEDS: METOPROLOL SUCCINATE (ER) 50 MG TAB.ER.24H PO SCH (08:27)
[2020-12-27] MEDS: ENOXAPARIN 40 MG/0.4 ML SYRINGE SQ SCH (08:27)
[2020-12-27] MEDS: SPIRONOLACTONE 25 MG TAB PO SCH (08:27)
[2020-12-27] MEDS: ALPRAZolam 0.5 MG TAB PO PRN (08:27)
[2020-12-27] MEDS ORDERED: METOPROLOL SUCCINATE (ER) 50 MG TAB.ER.24H PO SCH (09:00)
--- NOTE | 2020-12-27 10:52 | P.PN ---
Subjective Progress Note Date: 12/27/20 HISTORY OF PRESENT ILLNESS: This is a pleasant 45-year-old male past medical history significant for hypertension. 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 We have been asked to see in consultation for congestive heart failure. Patient presents to the emergency department with complaints of cough and shortness of breath for 3-4 days. Patient states he had an episode of chest pain last week. Describes it as a heavy pressure. non-radiating. Exertional. Aggravated by activity. Alleviated by rest. He had associated diaphoresis, nausea no emesis, and shortness of breath. He states he was at work doing physical activity. He did not present to the emergency department and states he thought it may be his blood pressure being elevated. Over the past 4 days patient has had worsening shortness of breath, symptoms of orthopnea and PND. He state when he lays flat in bed "I feel like I am drowning". He also endorses lower extremity edema that comes and goes. He denies history of [place], stroke, diabetes, coronary artery disease. He denies family history of coronary artery disease. His mom has a history of having a pacemaker placed. He denies tobacco use. Denies alcohol use. Does occasionally use adderall that is not prescribed to him. Denies illicit drug use. He denies prior stress test or echocardiogram work up. On admission patient was hypertensive pressure 194/146, heart rate 108, afebrile, maintaining oxygen saturations on room air. Patient started on amlodipine 10 mg daily, IV Lasix 40 mg twice a day, lisinopril 10 mg daily. Patient with 4.6L urine output over the past 24 hours. DIAGNOSTICS EKG reveals sinus tachycardia, HR 105, T-wave inversions in leads I, II, III, and aVF as well as leads V3 V4 V5 and V6. ST depression in leads I, V5 and V6. No prior EKG to compare Telemetry tracings indicate sinus mechanism HR 80-low 100s. new ST depression in lead II Chest xray Perihilar and basilar infiltrates. Echocardiogram revealed EF 25-30%, LA is severely dilated, trace to mild aortic regurgitation, mild mitral regurgitation, mild tricuspid regurgitation. Aortic root is dilated and measures 4.1 cm Laboratory reviewed, WBC 15.8, hemoglobin 14, platelets 325, d-dimer 0.672, sodium 136, potassium 3.8, BUN 29, serum creatinine 1.06, magnesium 1.7, COVID- 19 PCR negative, proBNP 2330, Pro BNP 2330, Troponin 0.06--> 0.03--> 0.04 Current home medications include none 12/26/2020 Patient examined this morning at the bedside. He underwent cardiac catheterization yesterday revealing normal coronary arteries. Patient denies chest pain or pressure. He denies shortness of breath. He remains on IV lasix. BUN 23. Creatinine 1.03. Blood pressure 178/105. Heart rate in the 90s. 12/27/2020 Patient examined this morning at the bedside. Patient denies chest pain or pressure. He denies shortness breath. Patient states he did not sleep well overnight. Patient had his LifeVest delivered yesterday and is currently wearing it. Vital signs stable. Blood pressure 125/70. Heart rate in the 80s. PHYSICAL EXAM: VITAL SIGNS: Reviewed. GENERAL: Well-developed in no acute distress. NECK: Supple. No JVD or thyromegaly LUNGS: Respirations even and unlabored. Lungs essentially clear to auscultation bilaterally. HEART: Regular rate and rhythm. S1 and S2 heard. EXTREMITIES: Normal range of motion. No clubbing or cyanosis. Peripheral pulses intact. No lower extremity edema. Right groin cath site with no rhett amor. ASSESSMENT: Acute systolic heart failure EF 25-30% Nonischemic cardiomyopathy Abnormal troponins, s/p cardiac cath revealing normal coronary arteries Chest pain Shortness of breath Hypertension, uncontrolled PLAN: Continue current cardiac medications Discontinue IV lasix. Begin oral lasix Continue Lifevest Patient may be discharged home today from a cardiac standpoint Nurse practitioner note has been reviewed by physician. Signing provider agrees with the documented findings, assessment, and plan of care. Objective - Vital Signs Vital signs: Vital Signs Temp 97.8 F 12/27/20 08:20 Pulse 87 12/27/20 08:20 Resp 18 12/27/20 08:20 BP 125/70 12/27/20 08:20 Pulse Ox 95 12/27/20 08:20 Intake & Output 12/26/20 12/27/20 12/27/20 18:59 06:59 18:59 Intake Total 3120 240 Balance 3120 240 Weight 1109.7 kg 109.7 kg Intake: Oral 3120 240 Other: Voiding Method Toilet Toilet - Labs CBC & Chem 7: 12/26/20 07:16 12/27/20 07:19 Labs: Abnormal Lab Results - Last 24 Hours (Table) 12/27/20 Range/Units 07:19 Sodium 136 L (137-145) mmol/L Glucose 125 H (74-99) mg/dL Microbiology - Last 24 Hours (Table) 12/24/20 09:45 Blood Culture - Preliminary Blood No Growth after 48 hours 12/24/20 10:05 Blood Culture - Preliminary Blood No Growth after 48 hours
[2020-12-27 11:43] VITALS: BP 101/69; PULSE 67; RESP 16
--- NOTE | 2020-12-27 13:25 | P.DS ---
Providers Date of admission: 12/24/20 12:13 Expected date of discharge: 12/27/20 Attending physician: Rosalia Toscano MD Consults: 12/24/20 11:59 Consult Physician Routine Consulting Provider: Ronnie Lopez Consult Reason/Comments: Newly diagnosed Heart Failure Do you want consulting provider notified?: Yes Primary care physician: Stated None Hospital Course: Hypertensive urgency Heart failure exacerbation, newly diagnosed, unknown ejection fraction Elevated troponin secondary to the above Patient was admitted to the hospital with cardiology consult for HTN urgency. He was started on amlodipine and lisinopril for BP control as well as lasix for presumed HF exacerbation. Echo demonstrated EF of 25-30% with global hypokinesis. Cardiology recommended LHC which showed clean coronaries on 12/25. Pt was given IV lasix and his amlodipine was switched to spironolactone for complete GDMT. Pts pressures were much better controlled at the time of discharge. Patient was dsicharged with instructions to f/u with PCP and cardiology. He was d/c'd on [employer]. I spent 34 minutes coordinating this complex discharge. Assessment: Gen: awake, alert HEENT: normocephalic, atraumatic, good hearing acuity, moist mucous membranes Resp: Mild accessory muscle use, good air exchange, diminished breath sounds bilaterally in the bases, posterior crackles CVS: good distal perfusion x 4, tachycardic, regular rhythm, no murmurs, JVD to the angle of the jaw in upright position GI: soft, NTTP, ND : no SPT, no CVAT, pablo catheter not present MSK: no pitting edema, no clubbing Neuro: non-focal, moving all extremities Psych: cooperative, euthymic mood Patient Condition at Discharge: Good Plan - Discharge Summary Discharge Rx Participant: No New Discharge Prescriptions: New Spironolactone [Aldactone] 25 mg PO DAILY #30 tab Furosemide [Lasix] 40 mg PO DAILY #30 tab lisinopriL [Zestril] 10 mg PO DAILY #30 tab Metoprolol Succinate (ER) [Toprol XL] 50 mg PO DAILY #30 tab.er.24h Discontinued Dm/Acetaminophen/Doxylamine [Vicks Nyquil Cold-Flu Liquid] 30 ml PO Q6H PRN PRN Reason: Cold Symptoms Discharge Medication List Furosemide [Lasix] 40 mg PO DAILY #30 tab 12/27/20 [Rx] Metoprolol Succinate (ER) [Toprol XL] 50 mg PO DAILY #30 tab.er.24h 12/27/20 [Rx] Spironolactone [Aldactone] 25 mg PO DAILY #30 tab 12/27/20 [Rx] lisinopriL [Zestril] 10 mg PO DAILY #30 tab 12/27/20 [Rx] Follow up Appointment(s)/Referral(s): Tk Marcos MD [STAFF PHYSICIAN] - 1 Week Yfn Hale [STAFF PHYSICIAN] - 12/30/20 8:00 am Patient Instructions/Handouts: *Surgery [facility] - After Heart Catheterization - Meeting Manager Instructions, Heart Failure (DC), Wearable Cardioverter Defibrillator (DC) Discharge Disposition: HOME SELF-CARE
[2020-12-28] MEDS ORDERED: FUROSEMIDE 40 MG TAB PO SCH (09:00)
== END 2020-12-27 14:02 | disposition home or self-care (01) | DRG 286 ==
LOC: EC 08:23 → 3SCARD 12:13
PROVIDERS: ADMIT Internal Medicine; ATTEND Internal Medicine
PROC: B2111ZZ Fluoroscopy of Multiple Coronary Arteries using Low Osmolar Contrast (ICD-10-PCS; 2020-12-25)
PROC: 4A023N7 Measurement of Cardiac Sampling and Pressure, Left Heart, Percutaneous Approach (ICD-10-PCS; principal; 2020-12-25 08:25)
DX: I11.0 Hypertensive heart disease with heart failure (principal); I50.21 Acute systolic (congestive) heart failure; J81.0 Acute pulmonary edema; E11.9 Type 2 diabetes mellitus without complications; I08.3 Combined rheumatic disorders of mitral, aortic and tricuspid valves; I16.0 Hypertensive urgency; F41.0 Panic disorder [episodic paroxysmal anxiety]; R79.89 Other specified abnormal findings of blood chemistry; I42.0 Dilated cardiomyopathy; R77.8 Other specified abnormalities of plasma proteins; R00.0 Tachycardia, unspecified; Z20.822 Contact with and (suspected) exposure to COVID-19; Z79.899 Other long term (current) drug therapy
CPT/HCPCS: 36415; 71046; 71275; 80048; 80053; 83605; 83735; 83880; 84484; 85025; 85379; 85610; 85730; 87040; 87635; 93005; 93306; 93458; 96361; 96374; 96375; 99291

== ENCOUNTER 2023-11-25 07:05 | Day surgery (SDC) | payer BC ==
--- NOTE | 2023-11-24 08:38 | P.HPOR ---
History of Present Illness H&P Date: 11/24/23 Chief Complaint: Right knee pain The patient's 48-year-old male presents with progressive right knee pain for the past couple years worsening over the past 6 months. He has diffuse pain along with swelling and stiffness. He has intermittent buckling and giving way. He is having significant night symptoms. He's been taking medications without much relief. Review of Systems As per HPI Past Medical History Past Medical History: Hypertension Additional Past Medical History / Comment(s): rt knee pain, hx kidney stones, nerve sheath tumor right lower extremity History of Any Multi-Drug Resistant Organisms: None Reported Past Surgical History: No Surgical Hx Reported Additional Past Surgical History / Comment(s): lithotripsy several times Past Anesthesia/Blood Transfusion Reactions: Postoperative Nausea & Vomiting (PONV) Smoking Status: Never smoker - Past Family History Father Family Medical History: No Reported History Medications and Allergies Home Medications Medication Instructions Recorded Confirmed Type Furosemide [Lasix] 40 mg PO DAILY #30 tab 12/27/20 Rx Metoprolol Succinate (ER) [Toprol 50 mg PO DAILY #30 tab.er.24h 12/27/20 Rx XL] Spironolactone [Aldactone] 25 mg PO DAILY #30 tab 12/27/20 Rx lisinopriL [Zestril] 10 mg PO DAILY #30 tab 12/27/20 Rx Allergies Allergy/AdvReac Type Severity Reaction Status Date / Time No Known Allergies Allergy Verified 11/23/23 14:34 Physical Examination - Knee right Appearance: effusion Effusion grade: grade 2 Tenderness with palpation: anterior, lateral, peripatellar Pain: throughout ROM Gait: limping ROM: extension: -10 degrees ROM: flexion: 110 degrees Crepitus with motion: Yes Strength: extension: 5/5 Strength: flexion: 5/5 Meniscal tests: lateral meniscal tests: positive, lateral joint line pain: positive Results The patient is a well-developed well-nourished male approximately 6 foot 2, 280 pounds of endomorphic habitus. HEENT exam is nonfocal, neck is supple. He has painless passive motion of the right hip. Straight leg raise is negative. He is tender about the lateral joint line long lateral patella facet. Collaterals are stable, Sunil is negative, Mirza's is equivocal. His distal neurovascular appears intact in the right lower extremity. - Diagnostic results Knee MRI: image reviewed (MRI of the right knee shows evidence of multiple chondral defects in the medial femoral condyle and medial tibial plateau along with multiple suprapatellar an intra-articular loose bodies in addition to a lateral meniscal tear.) Assessment and Plan Assessment: Right knee synovial chondromatosis Internal derangement right knee /possible lateral meniscal tear Plan: I talked to the patient at length regarding his condition along with treatment options. At this point is having significant pain and mechanical symptoms despite attempted conservative measures. After a thorough discussion he opts to proceed with surgery. We'll plan to proceed with arthroscopic evaluation with possible partial lateral meniscectomy along with loose body removal and synovectomy. Risks and benefits were discussed at length in layman's terms. We will likely perform that as an outpatient procedure.
[~2023-11-25 07:05] MED LIST: LIDOCAINE 1% (10MG/ML) FOR IV START INTRADERMA PRN
[2023-11-25] MEDS: IV FLUID CONTINUATION 1,000 ML IV ONE (07:31)
[2023-11-25] MEDS: DEXAMETHASONE SOD PHOSPHATE 4 MG/ML 1 ML VIAL IV ONE (07:59)
[2023-11-25] MEDS: MIDAZOLAM 2 MG/2 ML VIAL IV PRN (08:00)
[2023-11-25] MEDS: ONDANSETRON 4 MG/2 ML VIAL IVP ONE (08:00)
[2023-11-25] MEDS: LACTATED RINGERS 1,000 ML IV SCH (08:01)
[2023-11-25 08:08] VITALS: TEMP 98
[2023-11-25] MEDS ORDERED: METOPROLOL TARTRATE 5 MG/5 ML VIAL IVP STA (08:22)
[2023-11-25] MEDS: METOPROLOL TARTRATE 5 MG/5 ML VIAL IVP STA (08:24)
[2023-11-25] MEDS ORDERED: GLYCOPYRROLATE 0.2 MG/ML 2 ML VIAL ONE (08:25)
[2023-11-25] MEDS ORDERED: fentaNYL (PF) 50 MCG/ML 2 ML AMP ONE (08:25)
[2023-11-25] MEDS ORDERED: PHENYLEPHRINE-0.9% NACL SYG 1,000 MCG/10 ML SYRINGE ONE (08:25)
[2023-11-25] MEDS ORDERED: ePHEDrine 50 MG/ML 1 ML VIAL ONE (08:25)
[2023-11-25] MEDS ORDERED: LIDOCAINE 1% INJ 10MG/ML (20 ML MDV) ONE (08:25)
[2023-11-25] MEDS ORDERED: PROPOFOL 10 MG/ML 20 ML VIAL IV ONE (08:25)
[2023-11-25] MEDS ORDERED: KETOROLAC 15 MG/ML 1 ML VIAL ONE (08:25)
[2023-11-25] MEDS ORDERED: HYDROmorphone (PF) 1 MG/ML ONE (08:25)
[2023-11-25] MEDS: ceFAZolin 3 GM in SODIUM CHLORIDE 0.9% 100 ML IVPB PRN (08:30)
[2023-11-25] MEDS: EPINEPHrine (PF) 1 ML in SODIUM CHLORIDE 0.9% IRRIGATIO 3,000 ML IRRIGATION ONE (08:48)
--- NOTE | 2023-11-25 10:04 | P.OP ---
Date of Procedure: 11/25/23 Preoperative Diagnosis: Right knee internal derangement/synovial chondromatosis Postoperative Diagnosis: Right knee posterior lateral meniscal tear/synovitis/multiple osteochondral loose bodies Procedure(s) Performed: Right knee arthroscopic partial lateral meniscectomy/loose body removal x 14/synovectomy of the medial, lateral, and patellofemoral compartments Anesthesia: IDRIS Surgeon: Norman Ricks Estimated Blood Loss (ml): 10 Pathology: none sent Condition: stable Disposition: PACU Indications for Procedure: The patient is a 48-year-old male who presents with progressive right knee pain and mechanical symptoms despite conservative measures. He was noted to have significant synovial chondromatosis with multiple loose bodies in the right knee. A discussion of the risks and benefits of operative intervention versus continued conservative measures was made with the patient. He opted to proceed with surgery. Operative risks to include infection, neurovascular injury, development of blood clots, possible incomplete resolution of symptoms, possible worsening of symptoms and need for subsequent procedures was discussed. Informed consent was obtained. Operative Findings: As below Description of Procedure: The patient was brought to the operating room, and after induction of general anesthesia examined the right knee. Collaterals were stable, Sunil was negative, and posterior drawer was negative. The right lower extremity was prepped and draped in a normal fashion. A superior lateral portal was made through a 3 mm skin incision superior and lateral to the patella. This was used for outflow. A lateral portal was made through a 5 mm vertical skin incision lateral to the patella tendon above the joint line. Diagnostic arthroscopy was performed. On inspection of the medial compartment, no significant meniscal pathology was noted. Grade 2-3 chondral changes were noted diffusely. A 1 x 1 cm osteochondral loose body was noted in the medial gutter. This was extracted with a grasper. Marked synovitis about the anterior medial compartment was debrided with a motorized shaver. On inspection of the notch, the anterior cruciate ligament appeared to be intact. There was a second 0.5 x 1 cm loose body in the notch. This was extracted with a grasper. On inspection of the lateral compartment, an oblique tear involving the posterior lateral meniscus was noted in the white-white junction. This debrided back to stable base with straight baskets and a motorized shaver. The remaining lateral meniscus was stable and intact. Minimal cartilage loss was noted in the lateral compartment. Anterolateral synovitis was debrided with a motorized shaver. The lateral gutter contained multiple osteochondral fragments. These were removed with a shaver along with a grasper. On inspection of the patellofemoral articulation, there was grade 2-3 chondral changes diffusely. Multiple osteochondral loose bodies were noted in the suprapatellar pouch. These were removed with a grasper along with a shaver. Marked synovitis in the patellofemoral articulation was debrided with a motorized shaver.. The gutters were clear debris. The knee was then thoroughly irrigated. The portals were closed with Steri-Strips. A sterile dressing was applied in addition to a compression stocking. The patient was awoken from general anesthesia and transferred to recovery room in good condition. Blood loss was estimated at 10 mL. No complications were incurred.
[2023-11-25] MEDS: HYDROmorphone 0.5 MG/0.5 ML SYRINGE IVP PRN (10:16)
[2023-11-25 10:55] VITALS: RESP 16
[2023-11-25] MEDS: HYDROcodone/APAP 5-325MG 1 EACH TAB PO PRN (11:02)
[2023-11-25 11:14] VITALS: BP 123/80
[2023-11-25 11:50] VITALS: PULSE 72
== END 2023-11-25 12:14 | disposition home or self-care (01) ==
LOC: OR 07:05
PROVIDERS: ATTEND Orthopaedic Surgery
DX: M23.251 Derangement of posterior horn of lateral meniscus due to old tear or injury, right knee (principal); M65.9 Synovitis and tenosynovitis, unspecified; M23.41 Loose body in knee, right knee; I10 Essential (primary) hypertension; Z79.899 Other long term (current) drug therapy
CPT/HCPCS: 29881; 29876; J2250; J1100; J0690; J2405; J0171; J2001; J3010; J1170 ×2; J1885; J2704; J2371; J1596